=== PATIENT | male | born 1985 | race African-American/Black ===

== ENCOUNTER 2017-10-12 18:45 | Emergency (ER) | payer OTHER ==
[~2017-10-12] VITALS: Ht 185.4 cm; Wt 99.8 kg
[2017-10-12 18:48] VITALS: BP 136/69
[2017-10-12 19:07] LABS: ABSOLUTE LYMPHOCYTES 1.7 thou/uL (0.8-5.3); ABSOLUTE NEUTROPHILS 5.3 thou/uL (1.6-8.1); BASOPHILS 0.6 %; EOSINOPHILS 0.3 %; HEMATOCRIT 41.8 % (42.0-52.0); HEMOGLOBIN 14.3 gm/dL (14.0-18.0); LYMPHOCYTES 21.1 %; MCH 31.2 pg (26.0-34.0); MCHC 34.1 g/dL (28.0-37.0); MCV 91.5 fL (80.0-100.0); MONOCYTES 12.6 %; MPV 8.3 fl. (7.2-11.1); NUCLEATED RBCS 0 /100WBC; PLATELET COUNT* 172 thou/uL (150-400); POLYS 65.4 %; RBC 4.57 mil/uL (4.50-6.00)
[2017-10-12 19:12] LABS: ANION GAP 12 mmol/L (7-16); BUN 19 mg/dL (7-18); CALCIUM 9.1 mg/dL (8.5-10.1); CHLORIDE 101 mmol/L (98-107); CO2 24 mmol/L (21-32); CREATININE 1.1 mg/dL (0.6-1.3); GLUCOSE 105 mg/dL (70-99); POTASSIUM 3.4 mmol/L (3.5-5.1); SODIUM 137 mmol/L (136-145)
[2017-10-12 19:26] LABS: ALBUMIN 3.7 g/dL (3.4-5.0); ALKALINE PHOSPHATASE 40 U/L (46-116); LIPASE 52 U/L (73-393); MAGNESIUM 1.9 mg/dL (1.8-2.4); NT-PRO BRAIN NAT PEPTIDE 256 pg/mL (<300); SGOT 34 U/L (15-37); SGPT 29 U/L (30-65); TOTAL BILIRUBIN 1.8 mg/dL (<0.1-1.0); TOTAL PROTEIN 7.2 g/dL (6.4-8.2); TROPONIN-I LEVEL <0.06 ng/mL (<0.06)
--- NOTE | 2017-10-14 18:38 | EKG ---
[place] [address] ELECTROCARDIOGRAM REPORT Name: ROLDAN LOFTON Room: [facility]#: [id number] Admission: 10/12/17 Attend Phys: Discharge: 10/12/17 Date of : 83 Report #: [id number] THIS REPORT FOR: //name// [facility] ED Test Date: 2017-10-12 Test Time: 18:48:18 Pat Name: ROLDAN LOFTON Department: Room: Gender: Sagger Filler: STEFANY : 1985 Requested By: Sanjay Angulo Order Number: [id number] MD: Joel Mackey Measurements Intervals [place] Rate: 78 P: 55 HI: 135 QRS: 0 QRSD: 95 T: 38 QT: 395 QTc: 450 Interpretive Statements Sinus rhythm RSR' in V1 or V2, probably normal variant No previous ECG available for comparison Electronically Signed On 10-14-2017 18:38:01 CDT by Joel Mackey [email or web address] <ELECTRONICALLY SIGNED> By: Joel Mackey MD, [facility] 10/14/178 47 47 Joel Mackey MD, FACC /EPI
== END 2017-10-12 19:59 | disposition home or self-care (01) ==
LOC: M.ERS 18:45
PROVIDERS: Emergency Medicine Emergency Medical Services
DX: R07.89 Other chest pain (principal); F15.10 Other stimulant abuse, uncomplicated; F32.9 Major depressive disorder, single episode, unspecified; F41.9 Anxiety disorder, unspecified; F17.210 Nicotine dependence, cigarettes, uncomplicated